=== PATIENT | female | born 1980 | race Caucasian/White ===

== ENCOUNTER → 2016-12-10 | Day surgery (SDC) | payer BC, OTHER ==
[~2016-12-10] VITALS: Ht 160 cm; Wt 74.4 kg
[~2016-12-10] MED LIST: ADVIL200 MG PO; MAALOX ADVANCE355 ML PO; TUMS REGULAR ST1 TAB PO
== END | disposition disaster alternative care site (69) ==
LOC: GPOC 12-07 15:00 → GEND 09:00 → GPOC 15:00
PROC: 0DB98ZX Excision of Duodenum, Via Natural or Artificial Opening Endoscopic, Diagnostic (ICD-10-PCS; principal; 2016-12-10)
DX: K22.8 Other specified diseases of esophagus (principal); K21.9 Gastro-esophageal reflux disease without esophagitis; J45.909 Unspecified asthma, uncomplicated; Z79.899 Other long term (current) drug therapy
CPT/HCPCS: J2001; J7030